=== PATIENT | male | born 1985 | race African-American/Black ===

== ENCOUNTER 2017-09-24 11:28 | Emergency (ER) | payer SELFPAY ==
[~2017-09-24] VITALS: Ht 172.7 cm; Wt 65.0 kg
[2017-09-24 11:35] VITALS: BP 143/99; PULSE 99; RESP 16; TEMP 98.8; O2SAT 98
[2017-09-24] MEDS ORDERED: SODIUM CHLOR 0.9% 1000 ML INJ 1,000 ML IV SCH (12:12)
[2017-09-24] MEDS ORDERED: SODIUM CHLORIDE 0.9% FLUSH 10 ML FLUSH IV FLUSH PRN (12:15)
--- NOTE | 2017-09-24 12:51 | PD ---
HPI Chief Complaint: Cold / Flu Symptoms Time Seen by Provider: 12:05 Travel History International Travel<30 days: No Contact w/Intl Traveler<30days: No Traveled to known affect area: No History of Present Illness HPI 32-year-old -[place] male presents emergency department with multiple complaints including 1 week history of generalized body aches, myalgia, joint pain, chills and subjective fever, and erythematous bumps, and what appears to be multiple folliculitis to his upper and lower extremities. Patient states she has had some darkening of his urine but denies dysuria, discharge, or testicular pain. Patient denies significant abdominal pain, nausea, vomiting, or other symptoms. Patient has a significant travel history of working in [facility] for the past 2 weeks. He is concerned about possible tick bite causing his current illness symptoms. He denies chest pain or shortness of breath. He has no specific tick bite site. Patient has no known drug allergies. PFSH Past Medical History Asthma: Yes Diminished Hearing: No Tetanus Vaccination: Unknown Influenza Vaccination: No Past Surgical History Surgical History: No Previous Surgery Social History Alcohol Use: Yes (socially) Tobacco Use: Yes Substance Use: No Allergies-Medications (Allergen,Severity, Reaction): Coded Allergies: No Known Allergies (Unverified , 09/24/17) Reported Meds & Prescriptions Reported Meds & Active Scripts Active Prednisone 20 Mg Tab 20 Mg PO BID 5 Days Doxycycline Hyclate 100 Mg Cap 100 Mg PO BID Review of Systems Except as stated in HPI: all other systems reviewed are Neg General / Constitutional: Positive: Fever, Chills (Subjective) HENT: No: Headaches, Vertigo, Lightheadedness, Sore Throat, Rhinitis, Rhinorrhea, Congestion, Nosebleed, Neck Stiffness, Neck Pain, Dental Difficulties, Earache Respiratory: No: Cough, Shortness of Breath, Wheezing Gastrointestinal: No: Nausea, Vomiting, Diarrhea, Abdominal Pain Genitourinary: No: Urgency, Frequency, Dysuria, Nocturia, Hematuria, Decreased Urinary Output Musculoskeletal: Positive: Myalgias, Arthralgias, No: Limited ROM, Pain Skin: Positive Lesions (See history of present illness per) Physical Exam Narrative GENERAL: Patient appears in no acute distress. SKIN: Warm and dry. Normal color. Normal turgor. Patient has multiple erythematous indurated areas, consistent with possible Lyme type rash. They are not significantly tender. Patient also has multiple folliculitis type lesions to both upper and lower extremities without signs of deep abscess or cellulitis. HEAD: Atraumatic. Normocephalic. EYES: Pupils equal and round. No scleral icterus. No injection or drainage. ENT: No nasal bleeding or discharge. Mucous membranes pink and moist. Pharynx is clear. Airways patent NECK: Trachea midline. No JVD. Supple without significant lymphadenopathy CARDIOVASCULAR: Regular rate and rhythm. RESPIRATORY: No accessory muscle use. Clear to auscultation. Breath sounds equal bilaterally. GASTROINTESTINAL: Abdomen soft, non-tender, nondistended. Hepatic and splenic margins not palpable. No CVA tenderness MUSCULOSKELETAL: Extremities without clubbing, cyanosis, or edema. No obvious deformities. NEUROLOGICAL: Awake and alert. No obvious cranial nerve deficits. Motor grossly within normal limits. Five out of 5 muscle strength in the arms and legs. Normal speech. PSYCHIATRIC: Appropriate mood and affect; insight and judgment normal. Data Data Last Documented VS Vital Signs Date Time Temp Pulse Resp B/P (MAP) Pulse Ox O2 Delivery O2 Flow Rate FiO2 09/24/17 14:51 92 18 125/71 (89) 96 Room Air 09/24/17 11:35 98.8 Orders Orders Complete Blood Count With Diff (09/24/17 12:12) Comprehensive Metabolic Panel (09/24/17 12:12) Urinalysis - C+S If Indicated (09/24/17 12:12) Iv Access Insert/Monitor (09/24/17 12:12) Ecg Monitoring (09/24/17 12:12) Oximetry (09/24/17 12:12) Sodium Chlor 0.9% 1000 Ml Inj (Ns 1000 M (09/24/17 12:12) Sodium Chloride 0.9% Flush (Ns Flush) (09/24/17 12:15) C-Reactive Protein (Crp) (09/24/17 12:12) B.Burgdorferi Igg&Igm Ab Lymes (09/24/17 12:12) Doxycycline (Vibratab) (09/24/17 13:00) Acetaminophen (Tylenol) (09/24/17 14:15) Dexamethasone Inj (Decadron Inj) (09/24/17 14:15) Labs Laboratory Tests Test 09/24/17 11:54 09/24/17 14:05 White Blood Count 11.9 TH/MM3 Red Blood Count 5.06 MIL/MM3 Hemoglobin 15.1 GM/DL Hematocrit 44.8 % Mean Corpuscular Volume 88.6 FL Mean Corpuscular Hemoglobin 29.8 PG Mean Corpuscular Hemoglobin Concent 33.7 % Red Cell Distribution Width 13.9 % Platelet Count 456 TH/MM3 Mean Platelet Volume 7.2 FL Neutrophils (%) (Auto) 72.6 % Lymphocytes (%) (Auto) 16.6 % Monocytes (%) (Auto) 7.8 % Eosinophils (%) (Auto) 2.4 % Basophils (%) (Auto) 0.6 % Neutrophils # (Auto) 8.6 TH/MM3 Lymphocytes # (Auto) 2.0 TH/MM3 Monocytes # (Auto) 0.9 TH/MM3 Eosinophils # (Auto) 0.3 TH/MM3 Basophils # (Auto) 0.1 TH/MM3 CBC Comment DIFF FINAL Differential Comment Blood Urea Nitrogen 5 MG/DL Creatinine 0.73 MG/DL Random Glucose 86 MG/DL Total Protein 9.2 GM/DL Albumin 3.9 GM/DL Calcium Level 9.4 MG/DL Alkaline Phosphatase 110 U/L Aspartate Amino Transf (AST/SGOT) 23 U/L Alanine Aminotransferase (ALT/SGPT) 27 U/L Total Bilirubin 0.6 MG/DL Sodium Level 136 MEQ/L Potassium Level 3.6 MEQ/L Chloride Level 99 MEQ/L Carbon Dioxide Level 29.8 MEQ/L Anion Gap 7 MEQ/L Estimat Glomerular Filtration Rate 149 ML/MIN C-Reactive Protein 8.77 MG/DL Urine Color YELLOW Urine Turbidity CLEAR Urine pH 7.0 Urine Specific [place] 1.008 Urine Protein NEG mg/dL Urine Glucose (UA) NEG mg/dL Urine Ketones NEG mg/dL Urine Occult Blood NEG Urine Nitrite NEG Urine Bilirubin NEG Urine Urobilinogen 4.0 OR GREATER mg/dL Urine Leukocyte Esterase NEG Urine RBC LESS THAN 1 /hpf Urine WBC 2 /hpf Microscopic Urinalysis Comment CULT NOT INDICATED MDM Medical Decision Making Medical Screen Exam Complete: Yes Emergency Medical Condition: Yes Differential Diagnosis Lyme disease. Folliculitis. Viral syndrome. Narrative Course Patient appears medically stable at time of exam. IV access is obtained. Labs ordered including CBC, CMP, CRP, Lyme titer, and urinalysis. Patient is given 1000 mL of normal saline bolus. CBC shows leukocytosis of 11.9, platelet count is elevated at 456. Chemistries are unremarkable, CRP is elevated at 8.77. Protein is elevated at 9.2. Urinalysis showed no sign of infection however bilirubin was elevated. Patient is given doxycycline 200 mg p.o. now. Patient continued on doxycycline 100 mg twice daily for 14 days. Patient is given prednisone 20 mg twice daily. Lyme titer is pending. Patient is recommended to follow-up with local primary care physician such as [facility]. Patient should return to the emergency department if symptoms worsen as needed. Diagnosis Primary Impression: Lyme disease, unspecified Additional Impression: Folliculitis Referrals: [facility] Patient Instructions: Folliculitis (ED), General Instructions, Lyme Disease (ED ) Additional Instructions: CBC shows leukocytosis of 11.9, platelet count is elevated at 456. Chemistries are unremarkable, CRP is elevated at 8.77. Protein is elevated at 9.2. Urinalysis showed no sign of infection however bilirubin was elevated. Patient is given doxycycline 200 mg p.o. now. Patient continued on doxycycline 100 mg twice daily for 14 days. Patient is given prednisone 20 mg twice daily. Lyme titer is pending. Patient is recommended to follow-up with local primary care physician such as [facility]. Patient should return to the emergency department if symptoms worsen as needed. Med/Other Pt SpecificInfo: Prescription(s) given Scripts Prednisone (Prednisone) 20 Mg Tab 20 MG PO BID for 5 Days, #10 TAB 0 Refills Prov: Enrique Pretty MD 09/24/17 Doxycycline Hyclate (Doxycycline Hyclate) 100 Mg Cap 100 MG PO BID for Infection, #28 CAP 0 Refills Prov: Enrique Pretty MD 09/24/17 Disposition: 01 DISCHARGE HOME Condition: Stable Sony Ortiz Sep 24, 2017 12:51
[2017-09-24 12:57] LABS: AUTOMATED NEUTROPHIL # 8.6 TH/MM3 (1.8-7.7); BASOPHIL # 0.1 TH/MM3 (0-0.2); BASOPHIL % 0.6 % (0.0-2.0); EOSINOPHIL # 0.3 TH/MM3 (0-0.4); EOSINOPHIL % 2.4 % (0.0-4.0); HEMATOCRIT 44.8 % (39.0-51.0); HEMOGLOBIN 15.1 GM/DL (13.0-17.0); LYMPH % 16.6 % (9.0-44.0); MEAN CELL VOLUME 88.6 FL (80.0-100.0); MEAN CORPUSCULAR HEMOGLOBIN 29.8 PG (27.0-34.0); MEAN CORPUSCULAR HGB CONC 33.7 % (32.0-36.0); MEAN PLATELET VOLUME 7.2 FL (7.0-11.0); MONO % 7.8 % (0.0-8.0); MONOCYTE # 0.9 TH/MM3 (0-0.9); NEUT % 72.6 % (16.0-70.0); PLATELET COUNT 456 TH/MM3 (150-450); RED BLOOD COUNT 5.06 MIL/MM3 (4.50-5.90); RED CELL DISTRIBUTION WIDTH 13.9 % (11.6-17.2); WHITE BLOOD COUNT 11.9 TH/MM3 (4.0-11.0)
[2017-09-24] MEDS ORDERED: DOXYCYCLINE HYCLATE 100 MG TAB PO ONE (13:00)
[2017-09-24 13:17] LABS: ALBUMIN 3.9 GM/DL (3.4-5.0); ALT (GPT) 27 U/L (12-78); AST (GOT) 23 U/L (15-37); BICARBONATE 29.8 MEQ/L (21.0-32.0); BLOOD UREA NITROGEN 5 MG/DL (7-18); C-REACTIVE PROTEIN 8.77 MG/DL (0.00-0.30); CALCIUM 9.4 MG/DL (8.5-10.1); CHLORIDE 99 MEQ/L (98-107); CREATININE 0.73 MG/DL (0.60-1.30); GLOMERULAR FILTRATION RATE 149 ML/MIN (>89); GLUCOSE,RANDOM 86 MG/DL (74-106); SODIUM (NA) 136 MEQ/L (136-145)
[2017-09-24 13:19] LABS: ALKALINE PHOSPHATASE 110 U/L (45-117); TOTAL BILIRUBIN ADULT 0.6 MG/DL (0.2-1.0); TOTAL PROTEIN 9.2 GM/DL (6.4-8.2)
[2017-09-24] MEDS ORDERED: DOXY100C PO (13:39)
[2017-09-24] MEDS ORDERED: DEXAMETHASONE SOD PHOS 20 MG/5 ML VIAL IV PUSH ONE (14:15)
[2017-09-24] MEDS ORDERED: ACETAMINOPHEN 500 MG CPLT PO ONE (14:15)
[2017-09-24 14:39] LABS: BILIRUBIN, URINE NEG (NEG); BLOOD, URINE NEG (NEG); GLUCOSE,URINE NEG (NEG); KETONE, URINE NEG (NEG); NITRITE,URINE NEG (NEG); URINE COLOR YELLOW (YELLW/STRAW); URINE LEUKOCYTE ESTERASE NEG (NEG)
[2017-09-24 14:51] VITALS: BP 125/71; PULSE 92; RESP 18; O2SAT 96
[2017-09-24] MEDS ORDERED: PRED20 PO (14:55)
== END 2017-09-24 15:11 | disposition home or self-care (01) ==
LOC: NEPD 11:28
DX: A69.20 Lyme disease, unspecified (principal); L73.9 Follicular disorder, unspecified; Z72.0 Tobacco use
CPT/HCPCS: 80053; 81001; 85025; 86140; 96361; 96374; 99284; J1100; J7030

== ENCOUNTER 2017-10-03 21:31 | Inpatient (IN) ==
[2017-10-08 09:54] VITALS: BP 122/67; PULSE 60; RESP 20; TEMP 98.2; O2SAT 99
== END 2017-10-08 11:39 | disposition left against medical advice (07) ==
LOC: NEPE 21:31 → NEDH 10-04 05:17 → NEPGCP 10-04 09:16 → N04 10-06 09:26
PROVIDERS: ADMIT Hospitalist; ATTEND Hospitalist